=== PATIENT | female | born 1985 | race Caucasian/White ===

== ENCOUNTER 2016-10-21 15:35 | Emergency (ER) | payer OTHER ==
[~2016-10-21] VITALS: Ht 165.1 cm; Wt 77.0 kg
[2016-10-21 15:57] VITALS: BP 113/74; PULSE 79; RESP 16; TEMP 98.8; O2SAT 100
[2016-10-21] MEDS ORDERED: SODIUM CHLOR 0.9% 1000 ML INJ 1,000 ML IV ONE (17:45)
--- NOTE | 2016-10-21 17:47 | PD ---
HPI Chief Complaint: Related Problem Time Seen by Provider: 17:18 Travel History International Travel<30 days: No Contact w/Intl Traveler<30days: No Traveled to known affect area: No History of Present Illness HPI The patient is a , 2 normal vaginal deliveries full-term, who presents emergency department for abdominal cramping and vaginal spotting. The patient' s last menstrual cycle started her 2016. The patient states she's had multiple home tests which were positive and had an ultrasound performed which revealed an abnormal endometrium per her report. The patient complains of light vaginal spotting the lower abdominal cramping that radiates to the back. She also complains of foul-smelling vaginal discharge. The patient only has one sexual partner, denies significant risk factors for sexually transmitted infections. The patient's symptoms are moderate, there are no known exacerbating factors, no current alleviating factors. The patient states her blood type is O+. PFSH Past Medical History Tetanus Vaccination: < 5 Years Influenza Vaccination: Yes ?: LMP: 09/09/16- patient is 6 weeks : 3 Para: 2 Miscarriage: 0 : 0 Social History Alcohol Use: No Tobacco Use: No Substance Use: No Allergies-Medications (Allergen,Severity, Reaction): Coded Allergies: No Known Allergies (Unverified , 10/21/16) Reported Meds & Prescriptions Reported Meds & Active Scripts Active No Active Prescriptions or Reported Medications Review of Systems Except as stated in HPI: all other systems reviewed are Neg General / Constitutional: No: Fever Cardiovascular: No: Chest Pain or Discomfort Respiratory: No: Shortness of Breath Gastrointestinal: No: Nausea, Vomiting, Diarrhea, Abdominal Pain Genitourinary: Positive: Pelvic Pain, Discharge, Vaginal Bleeding, No: Urgency , Frequency, Dysuria, Hematuria Skin: No Rash Physical Exam Narrative GENERAL: Awake, alert, pleasant 31-year-old female who appears her stated age and is in no acute respiratory distress. SKIN: Warm and dry. HEAD: Atraumatic. Normocephalic. EYES: No obvious pallor noted. ENT: No nasal bleeding or discharge. Mucous membranes pink and moist. NECK: Trachea midline. No JVD. GASTROINTESTINAL: Abdomen soft, mild suprapubic tenderness, no rebound tenderness, guarding, rigidity. Back: No CVA tenderness. Pelvic: The exam was performed in the presence of a female nurse. External examination reveals no rashes or lesions. Speculum examination reveals scant thin white discharge in vaginal vault. Cervix is closed with a small amount of friability at the 6 o'clock position. MUSCULOSKELETAL: No obvious deformities. No clubbing. No cyanosis. No edema. NEUROLOGICAL: Awake and alert. No obvious cranial nerve deficits. Motor grossly within normal limits. Normal speech. PSYCHIATRIC: Appropriate mood and affect; insight and judgment normal. Data Data Last Documented VS Vital Signs Date Time Temp Pulse Resp B/P Pulse Ox O2 Delivery O2 Flow Rate FiO2 10/21/16 19:15 70 16 127/60 98 Room Air 10/21/16 15:57 98.8 Orders Beta Hcg (Quant/Titer) (10/21/16 17:33) Complete Blood Count With Diff (10/21/16 17:33) Basic Metabolic Panel (Bmp) (10/21/16 17:33) Complete Rh (10/21/16 17:33) Us Pelvis (Ques Pr/Ect)W Trans (10/21/16 ) Wet Prep Profile (10/21/16 17:33) Urinalysis - C+S If Indicated (10/21/16 17:33) Ed Urine Pregnancytest Poc (10/21/16 17:33) Sodium Chlor 0.9% 1000 Ml Inj (Ns 1000 M (10/21/16 17:45) Acetaminophen (Tylenol) (10/21/16 20:45) Labs Laboratory Tests Test 10/21/16 10/21/16 10/21/16 17:43 18:07 20:30 White Blood Count 10.3 TH/MM3 Red Blood Count 4.28 MIL/MM3 Hemoglobin 13.6 GM/DL Hematocrit 38.3 % Mean Corpuscular Volume 89.6 FL Mean Corpuscular Hemoglobin 31.8 PG Mean Corpuscular Hemoglobin 35.5 % Concent Red Cell Distribution Width 12.2 % Platelet Count 278 TH/MM3 Mean Platelet Volume 7.2 FL Neutrophils (%) (Auto) 71.7 % Lymphocytes (%) (Auto) 21.7 % Monocytes (%) (Auto) 5.4 % Eosinophils (%) (Auto) 0.4 % Basophils (%) (Auto) 0.8 % Neutrophils # (Auto) 7.4 TH/MM3 Lymphocytes # (Auto) 2.2 TH/MM3 Monocytes # (Auto) 0.6 TH/MM3 Eosinophils # (Auto) 0.0 TH/MM3 Basophils # (Auto) 0.1 TH/MM3 CBC Comment DIFF FINAL Differential Comment Sodium Level 142 MEQ/L Potassium Level 3.6 MEQ/L Chloride Level 107 MEQ/L Carbon Dioxide Level 25.4 MEQ/L Anion Gap 10 MEQ/L Blood Urea Nitrogen 5 MG/DL Creatinine 0.69 MG/DL Estimat Glomerular Filtration 99 ML/MIN Rate Random Glucose 89 MG/DL Calcium Level 8.6 MG/DL Human Chorionic Gonadotropin, 1197 MIU/ML Quant Blood Type O POSITIVE Rho(D) Type POSITIVE Urine Color YELLOW Urine Turbidity CLEAR Urine pH 6.0 Urine Specific [place] 1.007 Urine Protein NEG mg/dL Urine Glucose (UA) NEG mg/dL Urine Ketones NEG mg/dL Urine Occult Blood NEG Urine Nitrite NEG Urine Bilirubin NEG Urine Leukocyte Esterase TRACE Urine RBC 0-2 /hpf Urine WBC 3-5 /hpf Urine Squamous Epithelial 0-5 /hpf Cells Urine Bacteria NONE /hpf Microscopic Urinalysis Comment CULT NOT INDICATED Clue Cells (Wet Prep) PRESENT Vaginal Trichomonas (Wet Prep) NONE SEEN Vaginal Yeast (Wet Prep) NONE SEEN MDM Medical Decision Making Medical Screen Exam Complete: Yes Emergency Medical Condition: Yes Medical Record Reviewed: Yes Interpretation(s) Last Impressions Pelvis Ultrasound 10/21/16 0000 Signed Impressions: Service Date/Time: Friday, October 21, 2016 19:03 - CONCLUSION: 1. Small cystic area measuring 5 mm at the endometrium which could potentially represent a gestational sac but cannot be confirmed given its size. 2. 1.8 cm complex mass the left ovary. This could represent a corpus luteal cyst although it is nonspecific. 3. Followup is recommended. Mundo Mckeon MD Laboratory Tests Test 10/21/16 10/21/16 10/21/16 17:43 18:07 20:30 White Blood Count 10.3 TH/MM3 Red Blood Count 4.28 MIL/MM3 Hemoglobin 13.6 GM/DL Hematocrit 38.3 % Mean Corpuscular Volume 89.6 FL Mean Corpuscular Hemoglobin 31.8 PG Mean Corpuscular Hemoglobin 35.5 % Concent Red Cell Distribution Width 12.2 % Platelet Count 278 TH/MM3 Mean Platelet Volume 7.2 FL Neutrophils (%) (Auto) 71.7 % Lymphocytes (%) (Auto) 21.7 % Monocytes (%) (Auto) 5.4 % Eosinophils (%) (Auto) 0.4 % Basophils (%) (Auto) 0.8 % Neutrophils # (Auto) 7.4 TH/MM3 Lymphocytes # (Auto) 2.2 TH/MM3 Monocytes # (Auto) 0.6 TH/MM3 Eosinophils # (Auto) 0.0 TH/MM3 Basophils # (Auto) 0.1 TH/MM3 CBC Comment DIFF FINAL Differential Comment Sodium Level 142 MEQ/L Potassium Level 3.6 MEQ/L Chloride Level 107 MEQ/L Carbon Dioxide Level 25.4 MEQ/L Anion Gap 10 MEQ/L Blood Urea Nitrogen 5 MG/DL Creatinine 0.69 MG/DL Estimat Glomerular Filtration 99 ML/MIN Rate Random Glucose 89 MG/DL Calcium Level 8.6 MG/DL Human Chorionic Gonadotropin, 1197 MIU/ML Quant Blood Type O POSITIVE Rho(D) Type POSITIVE Urine Color YELLOW Urine Turbidity CLEAR Urine pH 6.0 Urine Specific [place] 1.007 Urine Protein NEG mg/dL Urine Glucose (UA) NEG mg/dL Urine Ketones NEG mg/dL Urine Occult Blood NEG Urine Nitrite NEG Urine Bilirubin NEG Urine Leukocyte Esterase TRACE Urine RBC 0-2 /hpf Urine WBC 3-5 /hpf Urine Squamous Epithelial 0-5 /hpf Cells Urine Bacteria NONE /hpf Microscopic Urinalysis Comment CULT NOT INDICATED Clue Cells (Wet Prep) PRESENT Vaginal Trichomonas (Wet Prep) NONE SEEN Vaginal Yeast (Wet Prep) NONE SEEN Differential Diagnosis Differential diagnosis includes ectopic , threatened AB, incomplete AB , molar , normal , vaginitis, Trichomonas, bacterial vaginosis , UTI. Narrative Course IV was established, labs were drawn and sent, and the patient was placed on cardiac telemetry monitoring and continuous pulse oximetry monitoring. Bedside UA test was obtained. Formal beta hCG and Rh status was sent to lab. Ultrasound was ordered to evaluate for possible IUP versus ectopic . Pelvic exam was performed, wet prep was sent to lab. Beta hCG was 1197, ultrasound reveals what appears to be a gestational sac, patient will need follow-up beta hCG and ultrasound in the future with her textile finisher/ fabric finisher. The patient was provided a copy of her ultrasound results and beta hCG results at discharge. The patient's Rh status is O+, therefore, no indication for RhoGAM. Wet prep is positive, therefore, patient will be treated with Flagyl. Patient is stable for outpatient follow-up. Diagnosis Primary Impression: Threatened Additional Impression: Bacterial vaginosis Patient Instructions: General Instructions Additional Instructions: Take a vitamin daily. Flagyl as directed. Please provide the patient a copy of her ultrasound results and lab results at discharge. Follow-up with your textile finisher, repeat beta hCG and possible repeat ultrasound with her textile finisher in 48-72 hours. Med/Other Pt SpecificInfo: Prescription(s) given Scripts Metronidazole (Flagyl)500 Mg Mao939 Mg PO BID 7 Days Ref 0 Prov:Ralph Bailey MD 10/21/16 Disposition: 01 DISCHARGE HOME Condition: Stable Ralph Bailey MD Oct 21, 2016 17:47
[2016-10-21 17:50] LABS: AUTOMATED NEUTROPHIL # 7.4 TH/MM3 (1.8-7.7); BASOPHIL # 0.1 TH/MM3 (0-0.2); BASOPHIL % 0.8 % (0.0-2.0); EOSINOPHIL % 0.4 % (0.0-4.0); HEMATOCRIT 38.3 % (35.0-46.0); HEMO FLAGS DIFF FINAL; LYMPH % 21.7 % (9.0-44.0); LYMPHOCYTE # 2.2 TH/MM3 (1.0-4.8); MEAN CELL VOLUME 89.6 FL (80.0-100.0); MEAN CORPUSCULAR HEMOGLOBIN 31.8 PG (27.0-34.0); MEAN CORPUSCULAR HGB CONC 35.5 % (32.0-36.0); MONO % 5.4 % (0.0-8.0); NEUT % 71.7 % (16.0-70.0); PLATELET COUNT 278 TH/MM3 (150-450); RED BLOOD COUNT 4.28 MIL/MM3 (4.00-5.30); RED CELL DISTRIBUTION WIDTH 12.2 % (11.6-17.2); WHITE BLOOD COUNT 10.3 TH/MM3 (4.0-11.0)
[2016-10-21 18:02] LABS: POTASSIUM 3.6 MEQ/L (3.5-5.1)
[2016-10-21 18:05] LABS: BICARBONATE 25.4 MEQ/L (21.0-32.0)
[2016-10-21 18:19] LABS: BLOOD, URINE NEG (NEG); GLUCOSE,URINE NEG (NEG); KETONE, URINE NEG (NEG); NITRITE,URINE NEG (NEG)
[2016-10-21 18:29] LABS: RBC, URINE 0-2 /hpf (0-3); SQUAMOUS EPITHELIAL CELL URINE 0-5 /hpf (0-5); URINE COLOR YELLOW (YELLW/STRAW)
[2016-10-21 18:30] LABS: COMMENT (UR) CULT NOT INDICATED; CULTURE IF INDICATED CULT NOT INDICATED
[2016-10-21 19:15] VITALS: BP 127/60; PULSE 70; RESP 16; O2SAT 98
--- NOTE | 2016-10-21 19:53 | RADHPO ---
EXAM DATE/TIME: 10/21/2016 19:03 [facility] COMPARISON: No previous studies available for comparison. INDICATIONS : Vaginal spotting and pelvic cramping. LAB(S): Beta-hC MEDICAL HISTORY : . SURGICAL HISTORY : None. ENCOUNTER: Initial ACUITY: 1 week PAIN SCORE: 5/10 LOCATION: Bilateral pelvis MEASUREMENTS: UTERUS: 11.2 x 7.6 x 6.3 cm ENDOMETRIAL STRIPE: >20 mm RIGHT OVARY: 3.8 x 2.0 x 1.5 cm LEFT OVARY: 3.1 x 3.8 x 2.5 cm FINDINGS: UTERUS: The endometrium is thickened. There is a cystic area within the endometrium measuring 0.5 x 0.5 x 0.4 cm. A gestational sac cannot be confirmed as this is too small. A yolk sac or embryonic pole is not seen. RIGHT OVARY: Ovary contains no mass or significant cystic lesion. LEFT OVARY: There is a 1.8 cm complex mass seen at the left ovary. MISCELLANEOUS: No free fluid. CONCLUSION: 1. Small cystic area measuring 5 mm at the endometrium which could potentially represent a gestationa l sac but cannot be confirmed given its size. 2. 1.8 cm complex mass the left ovary. This could represent a corpus luteal cyst although it is nonsp ecific. 3. Followup is recommended. Mundo Mckeon MD on October 21, 2016 at 19:49 Board Certified Radiologist. This report was verified electronically.
[2016-10-21] MEDS ORDERED: ACETAMINOPHEN 325 MG TAB PO ONE (20:45)
[2016-10-21] MEDS ORDERED: METR-1 PO (20:54)
[2016-10-21 21:30] VITALS: BP 120/69; RESP 17
== END 2016-10-21 21:44 | disposition home or self-care (01) ==
LOC: PHED 15:35
DX: O20.0 Threatened abortion (principal); O23.591 Infection of other part of genital tract in pregnancy, first trimester; O26.891 Other specified pregnancy related conditions, first trimester; R10.30 Lower abdominal pain, unspecified; Z3A.01 Less than 8 weeks gestation of pregnancy
CPT/HCPCS: 76700; 76817; 80048; 81001; 84702; 84703; 85025; 86901; 87210; 96360; 99284; J7030